=== PATIENT | female | born 1990 | race Caucasian/White ===

== ENCOUNTER 2018-04-07 07:44 | Day surgery (SDC) | payer BC ==
[2018-04-07] MEDS ORDERED: CEFOXITIN/SWI 1gm 1 GM/10 ML SYR ONE (08:08)
[2018-04-07] MEDS ORDERED: Ringers Lactate 1,000 ML IV ONE (08:08)
[2018-04-07 08:20] LABS: Specific Gravity 1.025 (1.005-1.030)
[2018-04-07] MEDS ORDERED: PROPOFOL 200 MG/20 ML VIAL IV ONE (08:41)
[2018-04-07] MEDS ORDERED: LIDOCAINE 2% MPF 5 ML VIAL ONE (08:42)
[2018-04-07] MEDS ORDERED: FENTANYL CITR 250 MCG/5 ML ONE (08:43)
[2018-04-07] MEDS ORDERED: ONDANSETRON HCL 40 MG/20 ML VIAL ONE (08:45)
[2018-04-07] MEDS ORDERED: ROCURONIUM 50 MG/5 ML VIAL IV ONE (08:45)
[2018-04-07] MEDS ORDERED: MIDAZOLAM HCL 2 MG/2 ML INJ ONE (08:46)
[2018-04-07] MEDS ORDERED: GLYCOPYRROLATE 0.2 MG/ML SYR ONE (09:40)
[2018-04-07] MEDS ORDERED: NEOSTIGMINE 1 MG/ML -5 ML SYRINGE ONE (09:55)
[2018-04-07] MEDS ORDERED: ONDANSETRON 4 MG/2 ML VIAL ONE (10:13)
[2018-04-07] MEDS: MEPERIDINE HCL 50 MG/ML AMP ONE ×2 (10:14→10:22)
[2018-04-07] MEDS ORDERED: PROMETHAZINE 25 MG/ML VIAL ONE (10:19)
[2018-04-07] MEDS ORDERED: HYDROCODONE/APAP 7.5/325 MG TAB ONE (12:04)
[2018-04-07] MEDS ORDERED: CODEINE 30MG/APAP 300MG TAB ONE (12:12)
[2018-04-07 13:34] VITALS: BP 134/80; TEMP 98.2; O2SAT 99
--- NOTE | 2018-04-07 14:52 | OP ---
Date of Procedure: 04/07/2018 Surgeon: Zhang Lora MD Ruling Machine Feeder: MARBELLA Downs. Preoperative Diagnosis: Symptomatic cholelithiasis. Postoperative Diagnosis: Symptomatic cholelithiasis. Procedure: Laparoscopic cholecystectomy. Estimated Blood Loss: Minimal. Specimen: Gallbladder. Finding: As above. Anesthesia: General. Complications: None. Disposition: The patient tolerated the procedure in stable condition and taken to Recovery in good g eneral condition. Procedure On Detail: The patient was brought to the OR and placed in supine position. General anest hesia was begun. The patient was prepped and draped in usual sterile fashion. Marcaine 0.5% was inf iltrated locally. A 15-blade used to make a 2 cm supraumbilical midline incision. Subcutaneous tiss ue divided. The fascia was identified and divided. A #1 Vicryl stay suture was placed. Peritoneal cavity was entered with sharp and blunt dissection. A 12 mm trocar was placed into the peritoneal un majo direct vision. Pneumoperitoneum was established and then three 5-mm trocars were placed, 1 in th e epigastrium just to the right of midline, and 2 in the right subcostal region. Laparoscopy reveale d chronic inflammation of the gallbladder. Fundus retracted superiorly. Infundibulum identified and retracted inferolaterally. Cystic duct and cystic artery were clearly identified with blunt dissect ion. Clips placed. Both structures were divided. Cautery was used to remove the gallbladder from t he liver bed. Bleeding in the liver bed was controlled with cautery. The gallbladder was retrieved through the umbilicus via an EndoCatch bag. Right upper quadrant was examined. No evidence of bleed ing or bile leakage appreciated. Subsequently, all trocars were removed under direct vision. Stay s utures were tied to each other across the fascial defect. Subcutaneous wounds were irrigated. Bleed ing controlled with cautery. A 3-0 chromic used for subcutaneous tissue and closed the skin. Steril e dressing was applied. The patient was awakened and taken to Recovery in good general condition. Discharge Note: The patient will go to Day Surgery and home when stable. Disposition: Home. Condition: Stable. Discharge Instructions: Resume home medications and diet. Activity as tolerated. No heavy lifting. Remove outer dressing in 2 days. Shower. Keep wound clean and dry. Follow up in my office in 1 w [place]. Call for appointment. Tylenol No.3 one tablet p.o. q.4 p.r.n. pain. Keep Steri-Strips on at a ll times. CHRIS/CANDY Voice ID: [id number] Report ID: [id number]
== END 2018-04-07 13:10 | disposition home or self-care (01) ==
LOC: OR 07:44
PROVIDERS: ATTEND Surgery
PROC: 0FT44ZZ Resection of Gallbladder, Percutaneous Endoscopic Approach (ICD-10-PCS; principal; 2018-04-07 09:00)
DX: K80.10 Calculus of gallbladder with chronic cholecystitis without obstruction (principal); E66.01 Morbid (severe) obesity due to excess calories; Z88.8 Allergy status to other drugs, medicaments and biological substances
CPT/HCPCS: 81025; 88304; J2175; J2250; J2405; J2550; J2710

== ENCOUNTER 2018-04-16 20:34 | Emergency (ER) | payer BC ==
[2018-04-16] MEDS ORDERED: NA CHLORIDE 0.9% 1,000 ML ONE (21:02)
[2018-04-16 21:37] LABS: Urine Blood 3+ (NEG); Urine Glucose NEGATIVE (NEG); Urine Specific Gravity 1.015 (1.005-1.030)
[2018-04-16 21:38] LABS: Urine Protein 1+ (NEG)
[2018-04-16 21:42] LABS: Absolute Lymphocytes (CBC) 1.8 K/uL (0.7-4.9); Absolute Monocytes 0.4 K/uL (0.1-1.3); Absolute Neutrophil 7.7 K/uL (1.8-8.0); Basophils % 0.5 % (0-1.3); Hematocrit 35.7 % (36.0-45.0); Lymphocytes % 18.1 % (15.3-44.8); MCH 22.8 pg (27.0-35.0); MCV 71.3 fL (80-100); RBC Red Blood Cell Count 5.01 M/uL (3.86-4.86)
[2018-04-16 21:46] LABS: Urine Bacteria <20 /HPF (<20); Urine Culture Reflex Order NOT NEEDED; Urine Mucus MOD /HPF (NONE SEEN); Urine RBC TNTC /HPF (NONE SEEN)
[2018-04-16 21:50] LABS: ALT/SGPT 77 U/L (12-78); AST/SGOT 86 U/L (15-37); Albumin 3.8 g/dL (3.4-5.0); Alkaline Phosphatase 206 U/L (45-117); Amylase Level 23 U/L (25-115); BUN Blood Urea Nitrogen 4 mg/dL (7-18); Bicarbonate 26 mmol/L (21-32); Bilirubin Direct < 0.1 mg/dL (0-0.2); Bilirubin Total 0.4 mg/dL (0.2-1.0); Glucose Level 98 mg/dL (74-106); Lipase 66 U/L (73-393); Potassium 3.2 mmol/L (3.5-5.1); Sodium Level 141 mmol/L (136-145)
--- NOTE | 2018-04-16 21:50 | RAD REPORT ---
EXAM DESCRIPTION: CT - Abdomen Pelvis W Contrast - 04/16/2018 9:22 pm CLINICAL HISTORY: Abdominal pain/epigastric pain. Cholecystectomy 1 week ago COMPARISON: none. TECHNIQUE: Computed axial tomography of the abdomen pelvis was obtained. 100 cc Isovue-300 was admin istered intravenously. Oral contrast was not requested which limits evaluation of bowel. All CT scans are performed using dose optimization technique as appropriate and may include automated exposure control or mA/KV adjustment according to patient size. FINDINGS: The gallbladder has been removed. A fluid collection within the gallbladder fossa is not s een. Ascites is not noted. The liver, spleen, pancreas, adrenal and kidneys appear unremarkable. There is no evidence of diverticulitis. The appendix is normal A small umbilical hernia is present. Stranding is seen within the subcutaneous fat IMPRESSION: Cholecystectomy without fluid collection Small umbilical hernia. Stranding within the anterior subcutaneous fat may indicate inflammation.
--- NOTE | 2018-04-16 22:07 | ER ---
Nurse's Notes [facility] Name: Alanna Pathak Age: 27 yrs Sex: Female : 1990 Arrival Date: 04/16/2018 Time: 20:35 Bed 7 Private MD: Diagnosis: Epigastric pain Presentation: 04/16 20:44 Presenting complaint: Patient states: she had gallbladder sx approx 1 week ago and has aa1 been having int pain in her chest that radiates to her back but this evening the pain came back only this time it was much more intense. Denies any pain at this time but report pain at it's worst was 9/10. States pain began between her breast and went through to her back. Transition of care: patient was not received from another setting of care. Onset of symptoms was April 16, 2018 at 18:00. Risk Assessment: Do you want to hurt yourself or someone else? Patient reports no desire to harm self or others. Initial Sepsis Screen: Does the patient meet any 2 criteria? No. Patient's initial sepsis screen is negative. Does the patient have a suspected source of infection? No. Patient's initial sepsis screen is negative. Care prior to arrival: None. 20:44 Method Of Arrival: Ambulatory aa1 20:44 Acuity: CHIKIS 3 aa1 Triage Assessment: 20:47 General: Appears in no apparent distress. comfortable, Behavior is calm, cooperative, aa1 appropriate for age. Historical: - Allergies: 20:47 Equate cough syrup; aa1 20:47 Tamiflu; aa1 20:47 Prilosec; aa1 - Home Meds: 20:47 None [Active]; aa1 - PMHx: 20:47 None; aa1 - PSHx: 20:47 Cholecystectomy; ; aa1 - Immunization history:: Flu vaccine is not up to date. - Social history:: Smoking status: Patient/guardian denies using tobacco. - Ebola Screening: : No symptoms or risks identified at this time. Screenin:49 Abuse screen: Denies threats or abuse. Denies injuries from another. Nutritional aa1 screening: No deficits noted. Tuberculosis screening: No symptoms or risk factors identified. Fall Risk None identified. Assessment: 20:49 General: Appears in no apparent distress. comfortable, Behavior is calm, cooperative, aa1 appropriate for age. Pain: Complains of pain in xyphoid area and mid-sternal area Pain radiates to mid back area Pain currently is 0 out of 10 on a pain scale. at worst was 9 out of 10 on a pain scale. Quality of pain is described as sharp, Pain began 3 hours ago. Is intermittent. Neuro: Level of Consciousness is awake, alert, obeys commands, Oriented to person, place, time, situation, Moves all extremities. Full function Gait is steady, Speech is normal. Cardiovascular: Reports chest pain, Heart tones S1 S2 present Capillary refill < 3 seconds Clubbing of nail beds is absent JVD is absent Patient's skin is warm and dry. Rhythm is regular Chest pain is described as severe, quality is stabbing, is located in substernal area radiates back began 3 hours prior to arrival episodes are intermittent last 2-3 minutes. Respiratory: Airway is patent Respiratory effort is even, unlabored, Respiratory pattern is regular, symmetrical. GI: No signs and/or symptoms were reported involving the gastrointestinal system. : No signs and/or symptoms were reported regarding the genitourinary system. EENT: No signs and/or symptoms were reported regarding the EENT system. Derm: Skin is intact, is healthy with good turgor, Skin is pink, warm \T\ dry. Musculoskeletal: Circulation, motion, and sensation intact. Capillary refill < 3 seconds. 21:34 Reassessment: Patient appears in no apparent distress at this time. Patient and/or aa1 family updated on plan of care and expected duration. Pain level reassessed. Patient is alert, oriented x 3, equal unlabored respirations, skin warm/dry/pink. Awaiting lab results. 22:17 Reassessment: Patient appears in no apparent distress at this time. Patient is alert, aa1 oriented x 3, equal unlabored respirations, skin warm/dry/pink. Discussed d/c \T\ f/u instructions with pt \T\ spouse; denies questions or concerns at this time Patient denies pain at this time. Patient states feeling better. Vital Signs: 20:47 BP 166 / 97; Pulse 100; Resp 20; Temp 98.1; Pulse Ox 100% on R/A; Weight 127.01 kg; aa1 Height 5 ft. 8 in. (172.72 cm); Pain 0/10; 21:34 BP 121 / 66; Pulse 94; Resp 20; Pulse Ox 99% on R/A; Pain 0/10; aa1 22:17 BP 115 / 66; Pulse 84; Resp 16; Pulse Ox 100% on R/A; Pain 0/10; aa1 20:47 Body Mass Index 42.57 (127.01 kg, 172.72 cm) aa1 ED Course: 20:35 Patient arrived in ED. am2 20:36 Kareem Mccauley NP is PHCP. pm1 20:36 Ron Johnson MD is Attending Physician. pm1 20:37 PHCP role handed off by Kareem Mccauley NP cp 20:37 Idris Blue PA is PHCP. cp 20:40 Aj Brody RN is Primary Nurse. bp 20:46 Triage completed. aa1 20:47 Arm band placed on right wrist. aa1 20:49 Patient has correct armband on for positive identification. Placed in gown. Bed in low aa1 position. Call light in reach. laboratory monitor on. Pulse ox on. NIBP on. 20:49 EKG done, by ED staff, reviewed by Ron Johnson MD. aa1 21:00 Inserted saline lock: 20 gauge in right antecubital area, using aseptic technique. bp Blood collected. 21:22 CT Abd/Pelvis - W/Contrast: no oral contrast In Process Unspecified. EDMS 21:22 CT completed. Patient moved to CT via stretcher. Patient moved back from CT. cw1 22:17 No provider procedures requiring assistance completed. IV discontinued, intact, aa1 bleeding controlled, No redness/swelling at site. Pressure dressing applied. Administered Medications: 21:00 Drug: NS 0.9% 1000 ml Route: IV; Rate: 1 bolus; Site: right antecubital; bp 22:16 Follow up: IV Status: Completed infusion aa1 Outcome: 22:06 Discharge ordered by MD. cp 22:17 Discharged to home ambulatory, with significant other. aa1 22:17 Condition: good 22:17 Discharge instructions given to patient, significant other, Instructed on discharge instructions, follow up and referral plans. medication usage, Demonstrated understanding of instructions, follow-up care, medications, Prescriptions given X 2. 22:20 Patient left the ED. aa1 Signatures: Dispatcher [employer] EDMS Preeti Tatum RN RN aa1 Jeanine Yo cw1 Idris Blue PA PA cp Kareem Mccauley, BUTT MAKER BUTT MAKER pm1 Mercedez Aaron am2 Aj Brody, RN RN bp
--- NOTE | 2018-04-16 22:08 | EDPHYS ---
Physician Documentation [facility] Name: Alanna Pathak Age: 27 yrs Sex: Female : 1990 Arrival Date: 04/16/2018 Time: 20:35 Bed 7 Private MD: ED Physician Ron Johnson HPI: 04/16 20:48 This 27 yrs old Female presents to ER via Ambulatory with complaints of Back cp Pain, Side pain. 20:48 The patient presents with pain that is acute. The symptoms are located in the mid back cp area. Onset: The symptoms/episode began/occurred intermittent. Associated signs and symptoms: Pertinent positives: abdominal pain, nausea. Historical: - Allergies: 20:47 Equate cough syrup; aa1 20:47 Tamiflu; aa1 20:47 Prilosec; aa1 - Home Meds: 20:47 None [Active]; aa1 - PMHx: 20:47 None; aa1 - PSHx: 20:47 Cholecystectomy; ; aa1 - Immunization history:: Flu vaccine is not up to date. - Social history:: Smoking status: Patient/guardian denies using tobacco. - Ebola Screening: : No symptoms or risks identified at this time. ROS: 20:49 Eyes: Negative for injury, pain, redness, and discharge. cp 20:49 Constitutional: Negative for body aches, chills, fever, poor PO intake. 20:49 ENT: Negative for drainage from ear(s), ear pain, sore throat, difficulty swallowing, difficulty handling secretions. 20:49 Cardiovascular: Negative for chest pain, edema, palpitations. 20:49 Respiratory: Negative for cough, shortness of breath, wheezing. 20:49 Abdomen/GI: Positive for abdominal pain, nausea, Negative for vomiting, diarrhea, constipation, black/tarry stool, rectal bleeding. 20:49 Back: Positive for radiated pain, of the mid back area, Negative for injury or acute deformity. 20:49 Skin: Negative for cellulitis, rash. 20:49 Neuro: Negative for altered mental status, headache, weakness. 20:49 All other systems are negative. Exam: 20:54 ECG was reviewed by the Attending Physician. cp 20:55 Constitutional: The patient appears in no acute distress, alert, awake, non-toxic, well cp developed, well nourished, obese. 20:55 Head/Face: Normocephalic, atraumatic. cp 20:55 Eyes: Periorbital structures: appear normal, Conjunctiva: normal, no exudate, no injection, Sclera: no appreciated abnormality, Lids and lashes: appear normal, bilaterally. 20:55 ENT: External ear(s): are unremarkable, Nose: is normal, Mouth: is normal, Posterior pharynx: is normal, airway is patent. 20:55 Chest/axilla: Inspection: normal, Palpation: is normal, no crepitus, no tenderness. 20:55 Cardiovascular: Rate: tachycardic, Rhythm: regular. 20:55 Respiratory: the patient does not display signs of respiratory distress, Respirations: normal, no use of accessory muscles, no retractions, no splinting, no tachypnea, labored breathing, is not present, Breath sounds: are clear throughout, no decreased breath sounds, no stridor, no wheezing. 20:55 Abdomen/GI: Inspection: obese surgical scars appear to be healing well, Bowel sounds: active, all quadrants, Palpation: soft, in all quadrants, mild abdominal tenderness, in the epigastric area, voluntary guarding, is not appreciated, involuntary guarding, is not appreciated. 20:55 Back: CVA tenderness, is absent. 20:55 Skin: cellulitis, is not appreciated, no rash present. 20:55 Neuro: Orientation: to person, place \T\ time. Mentation: lucid, able to follow commands, Cerebellar function: is grossly normal, Motor: moves all fours, strength is normal, Sensation: no obvious gross deficits. Vital Signs: 20:47 BP 166 / 97; Pulse 100; Resp 20; Temp 98.1; Pulse Ox 100% on R/A; Weight 127.01 kg; aa1 Height 5 ft. 8 in. (172.72 cm); Pain 0/10; 21:34 BP 121 / 66; Pulse 94; Resp 20; Pulse Ox 99% on R/A; Pain 0/10; aa1 22:17 BP 115 / 66; Pulse 84; Resp 16; Pulse Ox 100% on R/A; Pain 0/10; aa1 20:47 Body Mass Index 42.57 (127.01 kg, 172.72 cm) aa1 MDM: 20:37 Patient medically screened. cp 21:00 Differential diagnosis: gerd, choledocholithiasis, pancreatitis, uti. 21:55 Data reviewed: vital signs, nurses notes, lab test result(s), EKG, radiologic studies, cp CT scan, and as a result, I will discharge patient. 21:55 Counseling: I had a detailed discussion with the patient and/or guardian regarding: the cp historical points, exam findings, and any diagnostic results supporting the discharge/admit diagnosis, lab results, radiology results, to return to the emergency department if symptoms worsen or persist or if there are any questions or concerns that arise at home. 21:55 Special discussion: Based on the patient's Hx, exam, and Dx evaluation, there is no cp indication for emergent surgery or inpatient Tx. It is understood by the patient/guardian that if the Sx's persist or worsen they need to return immediately for re-evaluation. 04/16 20:48 Order name: Amylase, Serum; Complete Time: 21:51 04/16 21:51 Interpretation: HEIDY 23; Reviewed. 04/16 20:48 Order name: Basic Metabolic Panel; Complete Time: 21:51 04/16 21:51 Interpretation: Normal except: K 3.2; BUN 4; GFR 75. 04/16 20:48 Order name: CBC with Diff; Complete Time: 21:51 04/16 21:52 Interpretation: Normal except: RBC 5.01; HGB 11.4; HCT 35.7; MCV 71.3; MCH 22.8; RDW cp 17.7; WILLARD% 76.4. 04/16 20:48 Order name: Hepatic Function; Complete Time: 21:51 04/16 21:52 Interpretation: Normal except: AST 86; ALK 206; GLOB 4.2; A/G 0.9. 04/16 20:48 Order name: Lipase; Complete Time: 21:51 04/16 21:52 Interpretation: LIP 66; Reviewed. 04/16 20:48 Order name: Urine Microscopic Only; Complete Time: 21:51 04/16 21:52 Interpretation: Normal except: URBC TNTC. 04/16 20:48 Order name: EKG; Complete Time: 20:48 04/16 20:53 Order name: Troponin I; Complete Time: 21:51 04/16 21:53 Interpretation: TROP < 0.02; Reviewed. 04/16 20:59 Order name: CT Abd/Pelvis - W/Contrast: no oral contrast; Complete Time: 21:51 04/16 21:53 Interpretation: Report reviewed. 04/16 21:07 Order name: Urine Dipstick--Ancillary (enter results); Complete Time: 21:51 ms 04/16 21:52 Interpretation: Normal except: UBLD 3+; UPROT 1+; UESTR TRACE. 04/16 21:07 Order name: Urine --Ancillary (enter results); Complete Time: 21:51 ms 04/16 20:48 Order name: IV Saline Lock; Complete Time: 21:05 04/16 20:48 Order name: Labs collected and sent; Complete Time: 21:05 04/16 20:48 Order name: Urine Dipstick-Ancillary (obtain specimen); Complete Time: 20:58 04/16 20:48 Order name: EKG - Nurse/Tech; Complete Time: 20:53 04/16 20:53 Order name: Urine Test (obtain specimen); Complete Time: 20:57 aa1 EC:54 Rate is 98 beats/min. Rhythm is regular. HI interval is normal. QRS interval is normal. cp QT interval is normal. No ST changes noted. Interpreted by me. Reviewed by me. Administered Medications: 21:00 Drug: NS 0.9% 1000 ml Route: IV; Rate: 1 bolus; Site: right antecubital; bp 22:16 Follow up: IV Status: Completed infusion aa1 Disposition: 04/17 01:58 Co-signature as Attending Physician, Ron Johnson MD I agree with the assessment and kdr plan of care. Disposition: 04/16/18 22:06 Discharged to Home. Impression: Epigastric pain. - Condition is Stable. - Discharge Instructions: Gastroesophageal Reflux Disease, Adult. - Prescriptions for Pepcid 20 mg Oral Tablet - take 1 tablet by ORAL route every 12 hours for 10 days; 20 tablet. Zofran 4 mg Oral Tablet - take 1 tablet by ORAL route every 12 hours As needed; 20 tablet. - Medication Reconciliation Form, Thank You Letter, Antibiotic Education, Prescription Opioid Use form. - Follow up: Private Physician; When: 2 - 3 days; Reason: Recheck today's complaints. - Problem is new. - Symptoms have improved. Signatures: Dispatcher [employer] EDRI Preeti Tatum RN RN aa1 Ron Johnson MD MD kdr Idris Blue, LIONEL PA cp Aj Brody, RN RN bp Corrections: (The following items were deleted from the chart) 04/16 20:53 20:48 Urine Test ordered. cp aa1 21:28 20:48 Creatinine for Radiology+C.LAB.BRZ ordered. [facility] 22:20 22:06 04/16/2018 22:06 Discharged to Home. Impression: Epigastric pain. Condition is aa1 Stable. Forms are Medication Reconciliation Form, Thank You Letter, Antibiotic Education, Prescription Opioid Use. Follow up: Private Physician; When: 2 - 3 days; Reason: Recheck today's complaints. Problem is new. Symptoms have improved. cp
[2018-04-16 22:24] VITALS: TEMP 98.1
[2018-04-16 22:26] VITALS: BP 115/66; O2SAT 100
--- NOTE | 2018-04-17 06:48 | EKG ---
Test Date: 2018-04-16 Test Time: 20:51:03 Tax Accountant: MIKEL MEASUREMENT RESULTS: Intervals: Rate: 98 IL: 138 QRSD: 82 QT: 342 QTc: 436 [place]: P: 47 IL: 138 QRS: 13 T: 60 INTERPRETIVE STATEMENTS: Normal sinus rhythm Normal ECG No previous ECG available for comparison Electronically Signed On 04-17-18 06:47:57 CDT by King Gao
== END 2018-04-16 22:20 | disposition home or self-care (01) ==
LOC: ER 20:34
DX: R10.13 Epigastric pain (principal); Z88.8 Allergy status to other drugs, medicaments and biological substances
CPT/HCPCS: 36415; 74177; 80048; 80076; 81003; 81015; 81025; 82150; 83690; 84484; 85025; 93005; 96360; 99285; J7030; Q9967

== ENCOUNTER 2018-05-11 20:04 | Emergency (ER) | payer BC ==
[2018-05-11] MEDS ORDERED: KETOROLAC 30 MG/ML INJ ONE (21:17)
--- NOTE | 2018-05-11 21:24 | RAD REPORT ---
EXAM DESCRIPTION: Janes Nascimento (2 Views)05/11/2018 9:14 pm CLINICAL HISTORY: Chest pain COMPARISON: None FINDINGS: The lungs appear clear of acute infiltrate. The heart is normal size IMPRESSION: No acute abnormalities displayed
[2018-05-11 21:25] LABS: Absolute Lymphocytes (CBC) 1.1 K/uL (0.7-4.9); Absolute Monocytes 0.3 K/uL (0.1-1.3); Absolute Neutrophil 4.9 K/uL (1.8-8.0); Basophils % 0.4 % (0-1.3); Eosinophils % 0.5 % (0-4.4); Hematocrit 34.3 % (36.0-45.0); Lymphocytes % 17.3 % (15.3-44.8); MCH 23.2 pg (27.0-35.0); MCV 71.4 fL (80-100); Monocytes % 4.9 % (3.3-12.3); RBC Red Blood Cell Count 4.81 M/uL (3.86-4.86)
[2018-05-11 21:44] LABS: Albumin 3.7 g/dL (3.4-5.0); Bilirubin Direct 0.1 mg/dL (0-0.2); Bilirubin Total 0.3 mg/dL (0.2-1.0); Potassium 3.3 mmol/L (3.5-5.1); Protein, Total 7.6 g/dL (6.4-8.2)
[2018-05-11 22:12] LABS: Urine Blood 3+ (NEG); Urine Glucose NEGATIVE (NEG); Urine Protein NEGATIVE (NEG); Urine Specific Gravity 1.015 (1.005-1.030)
[2018-05-11] MEDS ORDERED: POTASSIUM CL SA 10 MEQ TAB PO ONE (22:29)
[2018-05-11] MEDS ORDERED: NA CHLORIDE 0.9% 1,000 ML ONE (22:39)
--- NOTE | 2018-05-11 22:39 | RAD REPORT ---
EXAM DESCRIPTION: CT - Abdomen Pelvis W Contrast - 05/11/2018 10:03 pm CLINICAL HISTORY: Abdominal pain/cholecystectomy 1 month ago COMPARISON: April 2018 TECHNIQUE: Computed axial tomography of the abdomen pelvis was obtained. 100 cc Isovue-300 was admin istered intravenously. Oral contrast was not requested which limits evaluation of bowel. All CT scans are performed using dose optimization technique as appropriate and may include automated exposure control or mA/KV adjustment according to patient size. FINDINGS: The gallbladder has been removed. A fluid collection is not present within the gallbladder fossa. The liver, spleen, pancreas, adrenal and kidneys appear unremarkable. There is no evidence of diverticulitis. The appendix is normal. A small umbilical hernia contains fat IMPRESSION: No acute abnormality is displayed.
--- NOTE | 2018-05-11 22:44 | ER ---
Nurse's Notes [facility] Name: Alanna Pathak Age: 27 yrs Sex: Female : 1990 Arrival Date: 05/11/2018 Time: 20:12 Bed 14 Private MD: Diagnosis: Epigastric pain. S/P Cholecystectomy. Elevared liver functions Presentation: 05/11 20:17 Presenting complaint: Patient states: "I had my gallbladder taken out a month ago, my bs1 stomach has been hurting since Tuesday and I feel bloated, it hurts after I eat and I feel a fluid pocket in my epigastric area.". Transition of care: patient was not received from another setting of care. Onset of symptoms was May 07, 2018. Risk Assessment: Do you want to hurt yourself or someone else? Patient reports no desire to harm self or others. Initial Sepsis Screen: Does the patient meet any 2 criteria? HR > 90 bpm. No. Patient's initial sepsis screen is negative. Does the patient have a suspected source of infection? No. Patient's initial sepsis screen is negative. Care prior to arrival: None. 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 - Social history:: Smoking status: Patient/guardian denies using tobacco. - Ebola Screening: : Patient negative for fever greater than or equal to 101.5 degrees Fahrenheit, and additional compatible Ebola Virus Disease symptoms Patient denies exposure to infectious person. Screenin:40 Abuse screen: Denies threats or abuse. Denies injuries from another. Nutritional bs1 screening: No deficits noted. Tuberculosis screening: No symptoms or risk factors identified. Fall Risk None identified. Assessment: 20:18 General: Appears in no apparent distress. uncomfortable, obese, Behavior is calm, bs1 cooperative, appropriate for age. Pain: Complains of pain in epigastric area. Pain: Pain radiates to right breast/back. Neuro: Level of Consciousness is awake, alert, obeys commands, Oriented to person, place, time, situation, Appropriate for age. Cardiovascular: Denies chest pain, shortness of breath, Heart tones S1 S2 present Capillary refill < 3 seconds Patient's skin is warm and dry. Respiratory: Airway is patent Trachea midline Respiratory effort is even, unlabored, Respiratory pattern is regular, symmetrical, Breath sounds are clear bilaterally. GI: Abdomen is round non-distended, Bowel sounds present X 4 quads. Abd is soft X 4 quads Abdomen is tender to palpation in epigastric area Reports bloating, epigastric pain. : No signs and/or symptoms were reported regarding the genitourinary system. EENT: No signs and/or symptoms were reported regarding the EENT system. Derm: Skin is intact, Skin is pink, warm \\T\\ dry. normal. Musculoskeletal: Circulation, motion, and sensation intact. Capillary refill < 3 seconds, Range of motion: intact in all extremities. 21:45 Reassessment: Patient appears in no apparent distress at this time. Patient and/or bs1 family updated on plan of care and expected duration. Pain level reassessed. Patient is alert, oriented x 3, equal unlabored respirations, skin warm/dry/pink. Patient informed of POC/pending lab work. 23:10 Reassessment: Patient appears in no apparent distress at this time. Patient and/or bs1 family updated on plan of care and expected duration. Pain level reassessed. Patient is alert, oriented x 3, equal unlabored respirations, skin warm/dry/pink. Patient finished 500 cc bolus. To be discharged and to follow up with Dr Lora in 2-3 days. Patient denies pain at this time. Patient states feeling better. Patient states symptoms have improved. Vital Signs: 20:20 BP 146 / 95; Pulse 120; Resp 18 S; Temp 98.7(O); Pulse Ox 100% on R/A; Weight 125.19 bs1 kg; Height 5 ft. 8 in. (172.72 cm); Pain 8/10; 21:00 BP 118 / 59; Pulse 93; Resp 16 S; Pulse Ox 100% on R/A; bs1 21:30 BP 119 / 66; Pulse 78; Resp 16 S; Pulse Ox 100% on R/A; bs1 22:15 BP 115 / 65; Pulse 69; Resp 16 S; Pulse Ox 100% on R/A; bs1 23:15 BP 118 / 68; Pulse 84; Resp 16; Temp 98; Pulse Ox 100% on R/A; Pain 0/10; bs1 20:20 Body Mass Index 41.97 (125.19 kg, 172.72 cm) bs1 ED Course: 20:12 Patient arrived in ED. es 20:17 Raine Field, LAITH is Primary Nurse. bs1 20:22 Aureliano Kearney PA is PHCP. jr8 20:22 Bon Montanez MD is Attending Physician. jr8 20:30 Arm band placed on left wrist. bs1 20:30 Inserted saline lock: 20 gauge in right antecubital area, using aseptic technique. bs1 Blood collected. by me. flushed with 10cc Ns. 20:38 Triage completed. bs1 20:41 Patient has correct armband on for positive identification. Placed in gown. Bed in low bs1 position. Call light in reach. Side rails up X 1. Pulse ox on. NIBP on. Warm blanket given. 21:12 XRAY Chest Pa And Lat (2 Views) In Process Unspecified. EDMS 21:[address] vr 22:02 CT completed. Patient tolerated procedure well. Patient moved back from CT. nj 22:03 CT Abd/Pelvis - W/Contrast In Process Unspecified. EDMS 22:42 Zhang Lora MD is Referral Physician. pkl 23:15 IV discontinued, bleeding controlled, No redness/swelling at site. Pressure dressing bs1 applied. 23:29 No provider procedures requiring assistance completed. bs1 Administered Medications: 21:32 Drug: TORadol 30 mg Route: IVP; Site: right antecubital; bs1 23:32 Follow up: Response: No adverse reaction bs1 22:29 Drug: K-Dur 20 mEq Route: PO; bs1 23:32 Follow up: Response: No adverse reaction bs1 22:38 Drug: NS 0.9% 500 ml {Note: nurse pulled 1L NS, patient to only receive 500cc, due to bs1 not having 500cc ns bags.} Route: IV; Rate: bolus; Site: right antecubital; 23:32 Follow up: IV Status: Completed infusion bs1 Outcome: 22:44 Discharge ordered by . pkl 23:30 Discharged to home ambulatory, with significant other. bs1 23:30 Condition: stable 23:30 Discharge instructions given to patient, Instructed on discharge instructions, follow up and referral plans. medication usage, Demonstrated understanding of instructions, follow-up care, medications, Prescriptions given X 2. 23:32 Patient left the ED. bs1 Signatures: Dispatcher [employer] Bon Nice MD MD pkl Salyer, Raina Dior Josh, PA PA jr8 Kenney Jeffrey Brittany RN RN bs1 Corrections: (The following items were deleted from the chart) 23:32 23:00 Reassessment: Patient appears in no apparent distress at this time. Patient bs1 and/or family updated on plan of care and expected duration. Pain level reassessed. Patient is alert, oriented x 3, equal unlabored respirations, skin warm/dry/pink. Patient finsih Patient denies pain at this time. Patient states feeling better. Patient states symptoms have improved. bs1
--- NOTE | 2018-05-11 22:44 | EDPHYS ---
Physician Documentation [facility] Name: Alanna Pathak Age: 27 yrs Sex: Female : 1990 Arrival Date: 05/11/2018 Time: 20:12 Bed 14 Private MD: ED Physician Bon Montanez HPI: 05/11 20:42 This 27 yrs old Female presents to ER via Ambulatory with complaints of jr8 Abdominal Pain. 20:42 Onset: The symptoms/episode began/occurred acutely, yesterday. Severity of symptoms: At jr8 their worst the symptoms were moderate in the emergency department the symptoms are unchanged. The patient has not experienced similar symptoms in the past. The patient has not recently seen a physician. Patient stated that she had gallbladder taken out about one month ago. Stated hat one week after surgery had some pain and bloating. Work up including blood work and CT were completed with no acute findings. Stated that they looked at her heart as well with no findings. Since then has been doing well. Today is having sharp pain to upper abdomen/chest region. Stated that pain is different then last time. Nauseated with it . 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 - Social history:: Smoking status: Patient/guardian denies using tobacco. - Ebola Screening: : Patient negative for fever greater than or equal to 101.5 degrees Fahrenheit, and additional compatible Ebola Virus Disease symptoms Patient denies exposure to infectious person. ROS: 20:42 Eyes: Negative for injury, pain, redness, and discharge, ENT: Negative for injury, jr8 pain, and discharge, Neck: Negative for injury, pain, and swelling, Cardiovascular: Negative for chest pain, palpitations, and edema, Respiratory: Negative for shortness of breath, cough, wheezing, and pleuritic chest pain, Back: Negative for injury and pain, MS/Extremity: Negative for injury and deformity, Skin: Negative for injury, rash, and discoloration, Neuro: Negative for headache, weakness, numbness, tingling, and seizure. 20:42 Abdomen/GI: Positive for abdominal pain, nausea, Negative for diarrhea, constipation, abdominal cramps, abdominal distension, anorexia, dysphagia, hematemesis, black/tarry stool, rectal pain, rectal bleeding, bowel incontinence, flatulence. Exam: 20:42 Head/Face: Normocephalic, atraumatic. Eyes: Pupils equal round and reactive to light, jr8 extra-ocular motions intact. Lids and lashes normal. Conjunctiva and sclera are non-icteric and not injected. Cornea within normal limits. Periorbital areas with no swelling, redness, or edema. ENT: Nares patent. No nasal discharge, no septal abnormalities noted. Tympanic membranes are normal and external auditory canals are clear. Oropharynx with no redness, swelling, or masses, exudates, or evidence of obstruction, uvula midline. Mucous membranes moist. Neck: Trachea midline, no thyromegaly or masses palpated, and no cervical lymphadenopathy. Supple, full range of motion without nuchal rigidity, or vertebral point tenderness. No Meningismus. Cardiovascular: Regular rate and rhythm with a normal S1 and S2. No gallops, murmurs, or rubs. Normal PMI, no JVD. No pulse deficits. Respiratory: Lungs have equal breath sounds bilaterally, clear to auscultation and percussion. No rales, rhonchi or wheezes noted. No increased work of breathing, no retractions or nasal flaring. Abdomen/GI: Soft, non-tender, with normal bowel sounds. No distension or tympany. No guarding or rebound. No evidence of tenderness throughout. Back: No spinal tenderness. No costovertebral tenderness. Full range of motion. Skin: Warm, dry with normal turgor. Normal color with no rashes, no lesions, and no evidence of cellulitis. MS/ Extremity: Pulses equal, no cyanosis. Neurovascular intact. Full, normal range of motion. Neuro: Awake and alert, GCS 15, oriented to person, place, time, and situation. Cranial nerves II-XII grossly intact. Motor strength 5/5 in all extremities. Sensory grossly intact. Cerebellar exam normal. Normal gait. 20:42 Chest/axilla: Inspection: normal, Palpation: tenderness, that is moderate, of the xyphoid area, left lower sternal boarder and left lower rib under breast , that totally reproduces the patient's complaints. Vital Signs: 20:20 BP 146 / 95; Pulse 120; Resp 18 S; Temp 98.7(O); Pulse Ox 100% on R/A; Weight 125.19 bs1 kg; Height 5 ft. 8 in. (172.72 cm); Pain 8/10; 21:00 BP 118 / 59; Pulse 93; Resp 16 S; Pulse Ox 100% on R/A; bs1 21:30 BP 119 / 66; Pulse 78; Resp 16 S; Pulse Ox 100% on R/A; bs1 22:15 BP 115 / 65; Pulse 69; Resp 16 S; Pulse Ox 100% on R/A; bs1 23:15 BP 118 / 68; Pulse 84; Resp 16; Temp 98; Pulse Ox 100% on R/A; Pain 0/10; bs1 20:20 Body Mass Index 41.97 (125.19 kg, 172.72 cm) bs1 MDM: 20:22 Patient medically screened. 8 21:58 Data reviewed: vital signs, nurses notes, lab test result(s), radiologic studies, CT jr8 scan. Data interpreted: Pulse oximetry: on room air is 100 %. Transition of care: After a detail discussion of the patient's case, care is transferred to Bon Montanez MD. 05/11 20:33 Order name: Basic Metabolic Panel; Complete Time: 21:44 [facility] 05/11 20:33 Order name: CBC with Diff; Complete Time: 21:44 [facility] 05/11 20:33 Order name: Creatinine for Radiology; Complete Time: 21:44 [facility] 05/11 20:33 Order name: Hepatic Function; Complete Time: 21:44 [facility] 05/11 20:33 Order name: Lipase; Complete Time: 21:44 [facility] 05/11 20:33 Order name: ESR; Complete Time: 21:44 [facility] 05/11 20:33 Order name: Urine Test (obtain specimen); Complete Time: 21:09 8 05/11 20:33 Order name: XRAY Chest Pa And Lat (2 Views); Complete Time: 21:26 8 05/11 21:15 Order name: Urine Dipstick--Ancillary (enter results); Complete Time: 22:13 nv 05/11 21:15 Order name: Urine --Ancillary (enter results); Complete Time: 22:13 nv 05/11 21:46 Order name: CT Abd/Pelvis - W/Contrast; Complete Time: 22:50 [facility] 05/11 20:33 Order name: IV Saline Lock; Complete Time: 21:05/11 20:33 Order name: Labs collected and sent; Complete Time: 21: 05/11 20:33 Order name: Urine Dipstick-Ancillary (obtain specimen); Complete Time: 21: 05/11 20:33 Order name: EKG - Nurse/Tech; Complete Time: 21:26 jr Administered Medications: 21:32 Drug: TORadol 30 mg Route: IVP; Site: right antecubital; bs1 23:32 Follow up: Response: No adverse reaction bs1 22:29 Drug: K-Dur 20 mEq Route: PO; bs1 23:32 Follow up: Response: No adverse reaction bs1 22:38 Drug: NS 0.9% 500 ml {Note: nurse pulled 1L NS, patient to only receive 500cc, due to bs1 not having 500cc ns bags.} Route: IV; Rate: bolus; Site: right antecubital; 23:32 Follow up: IV Status: Completed infusion bs1 Disposition: 22:16 Co-signature as Attending Physician, Bon Montanez MD. pkl Disposition: 05/11/18 22:44 Discharged to Home. Impression: Epigastric pain. S/P Cholecystectomy. Elevared liver functions. - Condition is Stable. - Prescriptions for Ultram 50 mg Oral Tablet - take 1 tablet by ORAL route every 8 hours As needed; 20 tablet. Zantac 300 mg Oral Tablet - take 1 tablet by ORAL route At bedtime; 30 tablet. - Medication Reconciliation Form, Thank You Letter, Antibiotic Education, Prescription Opioid Use form. - Follow up: Zhang Lora MD; When: 2 - 3 days; Reason: Re-evaluation by your physician. - Problem is new. - Symptoms have improved. Signatures: Dispatcher [employer] EDMS Bon Montanez MD MD pkl Aureliano Kearney PA PA jr8 Raine Field RN RN bs1 Corrections: (The following items were deleted from the chart) 23:32 22:44 05/11/2018 22:44 Discharged to Home. Impression: Epigastric pain. S/P bs1 Cholecystectomy. Elevared liver functions. Condition is Stable. Forms are Medication Reconciliation Form, Thank You Letter, Antibiotic Education, Prescription Opioid Use. Follow up: Dr. Zhang Lora; When: 2 - 3 days; Reason: Re-evaluation by your physician. Problem is new. Symptoms have improved. pkl
[2018-05-11 23:39] VITALS: TEMP 98.7; O2SAT 100
[2018-05-11 23:42] VITALS: BP 115/65
--- NOTE | 2018-05-12 08:19 | EKG ---
Test Date: 2018-05-11 Test Time: 21:19:18 Double End [place] Operator: THIEN MEASUREMENT RESULTS: Intervals: Rate: 93 CT: 142 QRSD: 80 QT: 358 QTc: 445 Dahlgren: P: 44 CT: 142 QRS: 13 T: 53 INTERPRETIVE STATEMENTS: Normal sinus rhythm Normal ECG Compared to ECG 04/16/2018 20:51:03 No significant changes Electronically Signed On 05-12-18 08:18:46 CDT by King Gao
== END 2018-05-11 23:32 | disposition home or self-care (01) ==
LOC: ER 20:04
DX: R10.13 Epigastric pain (principal); Z88.8 Allergy status to other drugs, medicaments and biological substances; R94.5 Abnormal results of liver function studies
CPT/HCPCS: 36415; 71046; 74177; 80048; 80076; 81003; 81025; 83690; 85025; 85652; 93005; 96361; 96374; 99284; J7030; Q9967

== ENCOUNTER 2018-05-24 10:29 | Day surgery (SDC) | payer BC ==
[2018-05-24] MEDS ORDERED: GENTAMICIN SULF 80 MG/2ML INJ ONE (10:49)
[2018-05-24 11:01] LABS: Specific Gravity 1.025 (1.005-1.030)
[2018-05-24] MEDS ORDERED: Ringers Lactate 1,000 ML IV ONE (11:12)
[2018-05-24] MEDS ORDERED: SIMETHICONE 40 MG/ 0.6 ML ONE (11:26)
[2018-05-24] MEDS ORDERED: PROPOFOL 200 MG/20 ML VIAL IV ONE ×2 (11:35→12:27)
[2018-05-24] MEDS ORDERED: LIDOCAINE 1% MPF 2 ML AMPULE ONE (11:36)
[2018-05-24] MEDS ORDERED: ONDANSETRON HCL 40 MG/20 ML VIAL ONE (11:36)
[2018-05-24] MEDS ORDERED: FENTANYL CITR 100 MCG/2 ML ONE (11:36)
[2018-05-24] MEDS ORDERED: GLUCAGON 1 MG/VIAL IV ONE (12:00)
[2018-05-24] MEDS ORDERED: MIDAZOLAM HCL 2 MG/2 ML INJ ONE (12:00)
--- NOTE | 2018-05-24 12:18 | ENDO RPT ---
[address], [address] ERCP PROCEDURE REPORT EXAM DATE: 05/24/2018 PATIENT NAME: Alanna Pathak MR #: [id number] BIRTHDATE: 1990 ATTENDING: Irving Herrera Dr STATUS: outpatient SWING GRINDER: Naa Millan and Whitney Jasso RN INDICATIONS: The patient is a 27 yr old Female here for an ERCP due to abdominal pain, abnormal imaging (MRCP revealed 3 mm stone in CBD), abnormal Liver Function Tests, and stone PROCEDURE PERFORMED: ERCP with sphincterotomy, ERCP with balloon passage, ERCP with removal of stones, and ERCP with stent placement MEDICATIONS: Per Anesthesia. CONSENT: The patient understands the risks and benefits of the procedure and understands that these risks include, but are not limited to: sedation, allergic reaction, infection, perforation and/or bleeding. Alternative means of evaluation and treatment include, among others: physical exam, x-rays, and/or surgical intervention. The patient elects to proceed with this endoscopic procedure. DESCRIPTION OF PROCEDURE: During intra-op preparation period all mechanical medical equipment was checked for proper function. Hand hygiene and appropriate measures for infection prevention was taken. Procedure, possible complications, and alternatives including but not limited to the possibility of bleeding, perforation, tear, infection, sepsis, need for surgery, need for blood transfusion, and anesthesia related complications were explained to the patient. In addition, 5-30% incidence of acute pancreatitis as a result of ERCP were explained. After the risks, benefits and alternatives of the procedure were thoroughly explained, Informed was verified, confirmed and timeout was successfully executed by the treatment team. With the patient in left semi-prone position, medications were administered intravenously.The [id number] ([id number]) was passed from the mouth into the esophagus and further advanced from the esophagus into the stomach. From stomach scope was directed to the second portion of the duodenum. Major papilla was aligned with the duodenoscope. The scope position was confirmed fluoroscopically. Rest of the findings/therapeutics are given below. The scope was then completely withdrawn from the patient and the procedure completed. The pulse, BP, and O2 saturation were monitored and documented by the physician and the nursing staff throughout the entire procedure. The patient was cared for as planned according to standard protocol. The patient was then discharged to recovery in stable condition and with appropriate post procedure care. A 3 mm stone was found in the common bile duct. Sphincterotomy was performed with a regular 20 mm papillotome. A stone retrieval balloon was passed. A straight stent was placed. The pancreatic duct was filled to the tail and appeared to be normal. Care was taken not to overfill the ductal system. ADVERSE EVENT: none IMPRESSIONS: 1. A 3 mm stone in the common bile duct, s/p sphincterotomy, 9 mm balloon catheter passage with extraction of stone / debris 2. The pancreatic duct was filled to the tail and appeared to be normal. Care was taken not to overfill the ductal system. RECOMMENDATIONS: 1. antibiotics 2. cholecystectomy REPEAT EXAM: Return in 2 week(s) for ERCP. Irving Herrera Dr eSigned: Irving Herrera Dr 05/24/2018 12:17 PM cc: Zhang Lora M.D. CPT CODES: ICD9 CODES: PATIENT NAME: Alanna Pathak MR#: [id number]
[2018-05-24] MEDS ORDERED: CEFAZOLIN/SWI 2gm 2 GM/20 ML SYR IV ONE (12:45)
[2018-05-24] MEDS: Ringers Lactate 1,000 ML IV ONE ×2 (12:55→14:04)
--- NOTE | 2018-05-24 13:18 | RAD REPORT ---
EXAM DESCRIPTION: RAD - Fluoroscopy ERCP - 05/24/2018 12:37 pm CLINICAL HISTORY: Abdominal pain FINDINGS: The common bile duct was cannulated and contrast administered. The exam was performed by Nicolas Herrera Small filling defect within the distal common bile duct is compatible with a stone. Subsequently a st ent was placed. 7 fluoroscopic spot images are submitted. Fluoroscopy time 4 minutes 9 seconds
[2018-05-24] MEDS ORDERED: GLUCAGON 1 MG/VIAL ONE (13:34)
[2018-05-24 14:34] VITALS: O2SAT 98
[2018-05-24 14:37] VITALS: BP 134/84; TEMP 98
== END 2018-05-24 14:25 | disposition home or self-care (01) ==
LOC: OR 10:29
PROVIDERS: ATTEND Internal Medicine Gastroenterology
PROC: 0F798DZ Dilation of Common Bile Duct with Intraluminal Device, Via Natural or Artificial Opening Endoscopic (ICD-10-PCS; 2018-05-24)
PROC: 0FC98ZZ Extirpation of Matter from Common Bile Duct, Via Natural or Artificial Opening Endoscopic (ICD-10-PCS; principal; 2018-05-24 11:30)
DX: K80.50 Calculus of bile duct without cholangitis or cholecystitis without obstruction (principal); R10.11 Right upper quadrant pain; K21.9 Gastro-esophageal reflux disease without esophagitis; Z88.8 Allergy status to other drugs, medicaments and biological substances; R12 Heartburn; E66.9 Obesity, unspecified; Z68.41 Body mass index [BMI] 40.0-44.9, adult
CPT/HCPCS: 81025; C1769; C2625; J0690; J1580; J1610; J2001; J2250; J2405; J3010

== ENCOUNTER 2018-05-26 15:41 | Observation (INO) | payer BC ==
[2018-05-26] MEDS ORDERED: ONDANSETRON 4 MG/2 ML VIAL IV PRN (16:29)
[2018-05-26] MEDS ORDERED: ACETAMINOPHEN 500 MG TAB PO PRN (16:29)
[2018-05-26] MEDS ORDERED: MORPHINE 2 MG/ML SYR IV PRN (16:29)
[2018-05-26 16:54] VITALS: BMI 42.9
[2018-05-26] MEDS ORDERED: D5 0.45 NS 1,000 ML IV SCH (17:00)
[2018-05-26 17:02] LABS: Specific Gravity <= 1.005 (1.005-1.030)
[2018-05-26 17:08] LABS: Absolute Lymphocytes (CBC) 1.4 K/uL (0.7-4.9); Absolute Monocytes 0.3 K/uL (0.1-1.3); Absolute Neutrophil 4.4 K/uL (1.8-8.0); Basophils % 0.5 % (0-1.3); Eosinophils % 1.5 % (0-4.4); Hematocrit 35.9 % (36.0-45.0); Lymphocytes % 22.3 % (15.3-44.8); MCH 22.9 pg (27.0-35.0); MCV 71.8 fL (80-100); MPV 10.4 fL (7.6-11.3); Monocytes % 5.3 % (3.3-12.3)
[2018-05-26 17:24] LABS: Albumin 3.8 g/dL (3.4-5.0); Bilirubin Total 0.3 mg/dL (0.2-1.0); Potassium 3.5 mmol/L (3.5-5.1); Protein, Total 7.3 g/dL (6.4-8.2)
[2018-05-26] MEDS: METRONIDAZOLE 500mg IVPB 500 MG/100 ML BAG IV SCH (18:11)
[2018-05-26] MEDS: CIPROFLOXACIN 400mg IV 400 MG/200 ML BAG IV SCH (18:11)
--- NOTE | 2018-05-26 20:22 | RAD REPORT ---
EXAM DESCRIPTION: US - Abdomen Exam Complete - 05/26/2018 8:14 pm CLINICAL HISTORY: Abdominal pain. abdominal pain, recent ERCP COMPARISON: Abdomen Pelvis W Contrast dated 05/11/2018; Abdomen Pelvis W Contrast dated 04/16/2018 FINDINGS: The liver is normal in size, shape and echotexture. No focal liver lesions or intrahepatic biliary dilatation is seen. Cholecystectomy clips. Common bile duct is normal in caliber measuring 5 millimeters. Both kidneys are normal in size, shape and echotexture. No hydronephrosis, focal lesion of concern or perinephric fluid. The spleen is upper limit of normal measuring 13 cm The pancreas and aorta are obscured by bowel gas. The visualized aspects of the IVC are grossly normal. IMPRESSION: Unremarkable study except for limited assessment of the pancreas and aorta due to bowel gas.
[2018-05-26 20:33] LABS: Urine Appearance CLEAR; Urine Bilirubin NEGATIVE (NEG); Urine Blood NEGATIVE (NEG); Urine Color YELLOW; Urine Glucose NEGATIVE (NEG); Urine Protein NEGATIVE (NEG); Urine Specific Gravity <=1.005 (1.005-1.030); Urine Urobilinogen 0.2 mg/dL (0.2-1.0); Urine pH 6.5 (5.0-7.0)
[2018-05-26 20:48] LABS: Urine Bacteria <20 /HPF (<20); Urine Culture Reflex Order NOT NEEDED; Urine RBC <5 /HPF (NONE SEEN)
[2018-05-26] MEDS ORDERED: POTASSIUM 25 MEQ EFFERV TAB PO ONE (21:00)
[2018-05-26 22:29] LABS: Amylase Level 21 U/L (25-115); Lipase 65 U/L (73-393)
[2018-05-26] MEDS: Ringers Lactate 1,000 ML IV SCH (22:34)
[2018-05-27] MEDS: METRONIDAZOLE 500mg IVPB 500 MG/100 ML BAG IV SCH ×3 (01:18→17:06)
--- NOTE | 2018-05-27 02:30 | HP ---
Date of Admission: 05/26/2018 Chief Complaint: Abdominal pain, nausea. Code Status: Full. History Of Present Illness: The patient is a 27-year-old female with no significant past medical history other than incidental finding of diverticulosis , who was recently discharged from the hospital on Tuesday when the patient had endoscopy done by Dr. Herrera on 05/24/2018. MRCP showed common bile duct stone and ERCP was done with sphincterotomy, balloon passage and removal of stones, and stent placement. Since then, the patient has been having abdominal pain radiating to her back in between the shoulder blades. She also has some nausea but no vomiting. The patient is on a clear-liquid diet, not able to tolerate anything more than that. Her symptoms are constant, moderate, progressively worsening. No alleviating or aggravating factors. The patient was sent directly to the hospital by Dr. Herrera for further evaluation and workup. When the patient was seen, she was awake, alert, oriented x3, in some mild distress. Past Medical History: None. Surgical History: and cholecystectomy. Allergies: TO TAMIFLU, OMEPRAZOLE, AND EQUATE COUGH SYRUP. Social History: The patient denies any tobacco use, alcohol use, or illicit drug use. She has good social support. She has 1 child. Family History: Heart disease runs in the family but no premature coronary . Review of Systems: An 11-point system reviewed, negative except as per HPI. Physical Examination: VITAL SIGNS: Stable, afebrile. GENERAL: Awake, alert, oriented x3, morbidly obese female, in some mild distress. HEENT: Normocephalic, atraumatic. PERRLA. EOMI. Dry mucous membranes. Oropharynx is clear, normal dentition. Conjunctivae are anicteric. NECK: Supple. No JVD. Trachea midline. CV: S1, S2. Regular rate and rhythm. Peripheral pulses present. No murmurs. RESPIRATORY: Clear to auscultation bilaterally. No wheezing. No stridor. No use of accessory muscles. GASTROINTESTINAL: Abdomen is soft. Mild tenderness to palpation in the right upper quadrant. No guarding or rigidity. No distention. Bowel sounds are positive. No hepatomegaly. EXTREMITIES: No clubbing, cyanosis, or edema. No calf tenderness. NEURO: Cranial nerves 2-12 intact grossly. No focal neurological deficits. Speech is normal. Strength is 5/5 in bilateral upper and lower extremities. SKIN: No rashes. Normal skin turgor. PSYCH: Mood is okay. Affect is full. Insight and judgment are good. Laboratory Data: Pending. Assessment And Plan: A 27-year-old female with: 1. Intractable abdominal pain. The patient is recently status post ERCP with stone removal. We will obtain CBC, CMP, abdominal ultrasound to further evaluate the etiology. We will obtain UA and urine test. Dr. Herrera has been consulted. 2. Morbid obesity. 3. Intractable nausea without vomiting. We will continue with IV antiemetics. 4. Gastrointestinal/deep venous thrombosis prophylaxis with SCDs and ranitidine. The patient is allergic to PPI. 5. History of diverticulosis. Plan: Ad[facility] the [facility] to [facility] as observation. CHRIS Voice ID: [id number] MTDD
[2018-05-27] MEDS: Ringers Lactate 1,000 ML IV SCH ×4 (05:17→20:46)
[2018-05-27 06:20] LABS: ALT/SGPT 34 U/L (12-78); AST/SGOT 15 U/L (15-37); Albumin 3.1 g/dL (3.4-5.0); Alkaline Phosphatase 92 U/L (45-117); Amylase Level 20 U/L (25-115); BUN Blood Urea Nitrogen 3 mg/dL (7-18); Bicarbonate 26 mmol/L (21-32); Bilirubin Total 0.3 mg/dL (0.2-1.0); Glucose Level 76 mg/dL (74-106); Lipase 59 U/L (73-393); Magnesium 1.8 mg/dL (1.8-2.4); Phosphorus 3.7 mg/dL (2.5-4.9); Potassium 3.4 mmol/L (3.5-5.1); Protein, Total 6.1 g/dL (6.4-8.2); Sodium Level 145 mmol/L (136-145)
[2018-05-27] MEDS ORDERED: POTASSIUM CL SA 10 MEQ TAB PO ONE ×2 (06:34→16:28)
[2018-05-27] MEDS ORDERED: MAGNESIUM SULFATE 1 gm IVPB 1 GM/100 ML BAG IV ONE (09:00)
[2018-05-27] MEDS: CIPROFLOXACIN 400mg IV 400 MG/200 ML BAG IV SCH ×2 (09:24→20:38)
[2018-05-27] MEDS ORDERED: GENTAMICIN SULF 80 MG/2ML INJ ONE (12:53)
[2018-05-27] MEDS ORDERED: GLUCAGON 1 MG/VIAL ONE (12:53)
[2018-05-27] MEDS ORDERED: Ringers Lactate 1,000 ML IV ONE (13:35)
[2018-05-27] MEDS ORDERED: PROPOFOL 200 MG/20 ML VIAL IV ONE ×2 (14:27)
[2018-05-27] MEDS ORDERED: ONDANSETRON HCL 40 MG/20 ML VIAL ONE (15:27)
[2018-05-27] MEDS ORDERED: FENTANYL CITR 100 MCG/2 ML ONE (15:27)
--- NOTE | 2018-05-27 16:18 | RAD REPORT ---
EXAM DESCRIPTION: Janes Single View05/27/2018 3:51 pm CLINICAL HISTORY: Chest pain COMPARISON: May 11, 2018 FINDINGS: The lungs appear clear of acute infiltrate. The heart is normal size IMPRESSION: No acute abnormalities displayed
--- NOTE | 2018-05-27 16:23 | RAD REPORT ---
EXAM DESCRIPTION: RADFluoroscopy ERCP05/27/2018 3:57 pm CLINICAL HISTORY: Abdominal pain FINDINGS: The examination was performed by Dr. Herrera. The common bile duct was cannulated and cont rast administered. The bile duct is normal caliber. A biliary stent was removed. Please refer to the performing physicia n's notes for additional findings. Four fluoroscopic spot images are submitted. Fluoroscopy time 57 seconds
--- NOTE | 2018-05-27 18:03 | PN ---
Subjective: Currently, the patient lying in bed. She looks comfortable. She had no chest pain. No abdominal pain. No nausea or vomiting, but she had not eaten anything since the morning. Physical Examination: Vital Signs: Blood pressure 133/62, respiratory rate 17, pulse 61, temperature 97.3. General: The patient is alert and oriented x3. Does not look in any distress. HEENT: Atraumatic, normocephalic. PERRLA. Oral mucosa is moist. Neck: Supple. No JVD. No carotid bruits. Chest: Clear to auscultation. Good air entry. Heart: Regular rate and rhythm. S1, S2 normal. No gallop or murmur. Abdomen: Soft. Minimal tenderness in the right upper quadrant. No guarding. No rebound. Positive bowel sounds. Extremities: No clubbing, cyanosis, or edema. No calf tenderness. Neurologic: Grossly intact. Cranial nerve exam 2 through 12 intact. Normal sensation. Normal refl exes. Normal muscle tone. Skin: No rash. Diagnostic Studies: Lab: CBC done yesterday, showed mild anemia with hemoglobin of 11.4. CMP done this morning; potassium 3.4, replaced. LFTs within normal. Lipase 59. Amylase 20. Assessment And Plan: 1.Intractable abdominal pain status post endoscopic retrograde cholangiopancreatogram with stone rem oval. The patient's labs CBC and all within normal including LFTs, and amylase, lipase are normal. Ultrasound was negative for stones, but the patient is going to have ERCP today hopefully. UA was do ne upon admission and was negative. No culture needed. 2.Morbid obesity. 3.Nausea much better. The patient n.p.o. still. 4.Gastrointestinal prophylaxis on the next day. 5.Hypokalemia, replaced. Potassium is normal. 6.She is on empiric antibiotic with Cipro and Flagyl, which we will discontinue after endoscopic ret rograde cholangiopancreatogram, if no need. 7.Discharge would be when abdominal pain resolved and the patient able to tolerate a diet without na usea and abdominal pain. LUCRETIA/CANDY Voice ID: [id number] Report ID: [id number]
[2018-05-28] MEDS: METRONIDAZOLE 500mg IVPB 500 MG/100 ML BAG IV SCH ×2 (01:47→08:15)
[2018-05-28] MEDS: Ringers Lactate 1,000 ML IV SCH (04:23)
[2018-05-28 05:58] LABS: BUN Blood Urea Nitrogen 3 mg/dL (7-18); Bicarbonate 24 mmol/L (21-32); Glucose Level 77 mg/dL (74-106); Potassium 3.5 mmol/L (3.5-5.1); Sodium Level 142 mmol/L (136-145)
[2018-05-28] MEDS ORDERED: POTASSIUM CL SA 10 MEQ TAB PO ONE (06:20)
[2018-05-28] MEDS: CIPROFLOXACIN 400mg IV 400 MG/200 ML BAG IV SCH (08:16)
[2018-05-28 08:32] VITALS: O2SAT 98
[2018-05-28] MEDS ORDERED: CEFAZOLIN/SWI 2gm 2 GM/20 ML SYR IV ONE (09:00)
[2018-05-28] MEDS ORDERED: levoFLOXacin 500 MG TAB PO ONE (10:00)
[2018-05-28] MEDS ORDERED: metroNIDAZOLE 500 MG TABLET PO ONE (10:00)
--- NOTE | 2018-05-28 10:41 | P.PN ---
Subjective Date of Service: 05/28/18 Chief Complaint: Upper abdominal pain and back pain with normal liver chemistries/ lipase Subjective: Improving (She is pain-free now and feels well. She has not used any pain medications) Review of Systems Unremarkable Physical Examination - Vital Signs Temperature: 97.2 F Blood Pressure: 134/80 Pulse: 71 Respirations: 17 Pulse Ox (%): 98 - Physical Exam General: Alert, In no apparent distress, Oriented x3, Cooperative HEENT: Atraumatic, Normocephalic, PERRLA, EOMI Neck: Supple Respiratory: Normal air movement Gastrointestinal: Soft and benign, No tenderness, No rebound, No guarding Neurological: Normal speech, Normal strength at 5/5 x4 extr - Studies Laboratory Data (last 24 hrs) 05/28/18 05:16: Sodium 142, Potassium 3.5, BUN 3 L, Creatinine 0.60, Glucose 77 , Magnesium 2.0 05/27/18 12:45: Potassium 3.7 Assessment And Plan - Current Problems (Diagnosis) (1) Epigastric abdominal pain Current Visit: Yes Status: Acute (2) Back pain Current Visit: Yes Status: Acute - Plan REC: 1) advance diet 2) can discharge home 3) GI clinic f/u in 1-2 weeks
[2018-05-28 12:57] VITALS: BP 138/77; TEMP 97.7
--- NOTE | 2018-05-29 06:26 | DS ---
Date of Discharge: 05/28/2018 Discharge Diagnoses: 1.Abdominal pain, resolved. 2.Hypokalemia, resolved. 3.Overweight. Consult: Dr. Herrera. Procedure: Abdominal ultrasound was normal except for limited assessment of the pancreas. ERCP done by Dr. Herrera. Report still pending, but stent was removed. History Of Present Illness: Please refer to Dr. Morton's admission note. Hospital Course: Initially, the patient presented with abdominal pain to Dr. Herrera's office, status post ERCP with stent placement. Dr. Herrera advised to admit her to the hospital. Her labs were nor mal. Ultrasound of the abdomen was normal. Dr. Herrera proceeded with ERCP next morning and removed the stent. The patient felt much better, and she will be discharged home today to follow up with Dr. Herrera in 2 weeks. No need for antibiotics. She will continue using her nausea medication as neede d as well as pain if any. At this point, the patient has no nausea or pain. Discharge Condition: Stable. Discharge Diet: Regular. I advised the patient to start with liquid and advance as she tolerates. Discharge Followup: With Dr. Herrera in 2 weeks. Discharge Medications: Zofran 8 mg every 8 hours as needed for pain, Phenergan 12.5 mg every 6 hours as needed, tramadol 50 mg orally every 4 hours as needed. Physical Examination: Vital Signs: Upon discharge, blood pressure is 134/80, respiratory rate 18, pulse 71, temperature 97 .2. General: The patient is alert and oriented x3. Does not look in any distress. HEENT: Atraumatic, normocephalic. PERRLA. Oral mucosa is moist. Neck: Supple. No JVD. No carotid bruits. Chest: Clear to auscultation. Good air entry. Heart: Regular rate and rhythm. S1, S2 normal. No gallop or murmur. Abdomen: Soft, nontender. No masses. No hepatosplenomegaly. Positive bowel sounds. Extremities: No clubbing, no cyanosis, or edema. No calf tenderness. Neurologic: Grossly intact. MT/MODL Voice ID: [id number] Report ID: [id number]
--- NOTE | 2018-05-29 09:32 | CON ---
Date of Consultation: 05/27/2018 Reason For Consultation: Persistent midepigastric pain and back pain, status post ERCP with stent wi th normal liver chemistries and normal amylase and lipase. History Of Present Illness: The patient is a 27-year-old white female who presented as an outpatient due to a positive MRCP showing stone in the common bile duct. ERCP was done with sphincterotomy, __ stone, stent placement, some bleeding at that time. The patient did well postop, however, continued to have pain in the upper abdomen and also in the back despite conservative treat ment as an outpatient with first day after procedure. The patient continued to have pain, decided to admit the patient to the hospital on the weekend . The patient was admitted Fr iday, did well overnight. Amylase and lipase on Tuesday as well Tuesday morning were both normal as were her liver chemistries. The patient states the pain felt somewhat better, but she continued to h ave some pain in her back and some in the upper abdomen. She denied any melena, hematochezia, hemate mesis, coffee-ground emesis, hematuria, dysuria, polydipsia, , shortness of breath ___. She did have back pain chest pain, shortness of breath, seizure, syncope. Past Surgical History: Significant for cholecystectomy and and ERCP with stent placement. Medications: At home, pain medicines . Allergies: TAMIFLU, OMEPRAZOLE, EQUATE COUGH SYRUP. Social History: She is . One child 9-month-old. No tobacco. No alcohol. Family History: Heart disease noted in the family. Review of Systems: The patient has some upper abdominal pain in midepigastric and also some back pain in the mid back, _ some nausea, but no emesis. No fevers, chills, night sweats. No melena, hematochezia, hem atemesis, coffee-ground emesis, hematuria, dysuria, polydipsia, chest pain, shortness of breath, seiz ure, syncope, lower extremity edema, muscle aches, joint aches, but she did have backaches. No depre ssion, anxiety. Physical Examination: Vital Signs: The patient is 5 feet 7 inches, 274 pounds, BMI 42.9 kg/meter squared, temperature 97.8 degrees Fahrenheit, pulse 89, respirations 16, blood pressure 136/76, O2 saturation 100%. General: She is an obese female, lying in bed, in no acute distress. HEENT: Normocephalic, atraumatic. Anicteric. Pupils equal, round, and reactive to light. Extraocu lar movements are intact. Oropharynx is clear. Neck: Supple. No masses. Respirations: Clear to auscultation bilaterally. Cardiac: Regular rate and rhythm. No gallops or rubs. Abdomen: Positive bowel sounds. Soft, nondistended, and nontender. No rebound. No peritoneal or M urphy sign. Extremities: No clubbing, cyanosis, or edema. 2+ pulses. Neuro: Alert and oriented x3. Grossly nonfocal. 5/5 motor. Sensation intact to light touch. Laboratory Data: The patient has a white count of 6.2, hemoglobin 11.4, hematocrit 36, MCV of 72, pl atelet count 184, polys of 70%, lymphocytes 20%, monocytes 5%, eosinophils 2%. The patient _ sodium 145, potassium 3.4, chloride 109, bicarb 26, BUN 3, creatinine 0.7, glucose 76, calcium 8.3, phosphorus 3.7, magnesium 1.8, total bilirubin 0.3, AST of 15, ALT of 34, alkaline phosphatase 92, t otal protein 6.1, albumin 3.1, amylase of 20, lipase of 59. Yesterday, the patient had an amylase of 21, lipase of 65. Urine test is negative. UA, 3+ ketones, 10 to 20 squamous epithelial c ells otherwise negative. Ultrasound of abdomen which was done yesterday, unremarkable tejal dy. Cholecystectomy clips in place, otherwise negative. Impression: 1.Persistent midepigastric pain and back pain, status post endoscopic retrograde cholangiopancreatog siomara with stent with normal liver chemistries and amylase and lipase, normal while in the hospital yesterday and today, irritation, therefore we persistent irritation causing her some pain in the upper abdomen and back. no other problems in the gallbladder fossa and diaphragmatic area. 2.Proceed with endoscopic retrograde cholangiopancreatography with stent removal. 3.Continue IV fluids. 4.Continue p.r.n. pain medicines, antiemetics. 5.Monitor labs. LINH/MODL Voice ID: [id number] Report ID: [id number]
== END 2018-05-28 13:03 | disposition home or self-care (01) ==
LOC: 4TH 16:00
PROVIDERS: ADMIT Family Medicine; ATTEND Family Medicine
PROC: 0FPB8DZ Removal of Intraluminal Device from Hepatobiliary Duct, Via Natural or Artificial Opening Endoscopic (ICD-10-PCS; principal; 2018-05-27 14:00)
DX: R10.13 Epigastric pain (principal); E87.6 Hypokalemia; R11.2 Nausea with vomiting, unspecified; E66.01 Morbid (severe) obesity due to excess calories; Z68.41 Body mass index [BMI] 40.0-44.9, adult; M54.9 Dorsalgia, unspecified; Z90.49 Acquired absence of other specified parts of digestive tract
CPT/HCPCS: 36415; 71045; 76700; 80048; 80053; 81001; 81025; 82150; 83690; 83735; 84100; 84132; 84703; 85025; 94760; G0378; J0690; J0744; J1580; J1610; J2405; J3010; J3475

== ENCOUNTER 2019-02-22 00:17 | Inpatient (IN) | payer BC ==
[2019-02-22] MEDS ORDERED: Ringers Lactate 1,000 ML IV PRN (04:12)
[2019-02-22] MEDS ORDERED: NA CIT/CITRIC AC 30 ML ORAL UDC PO ONE (04:19)
[2019-02-22] MEDS ORDERED: CEFAZOLIN/SWI 2gm 2 GM/20 ML SYR ONE ×2 (04:55→07:51)
[2019-02-22] MEDS ORDERED: Ringers Lactate 1,000 ML IV SCH (05:00)
[2019-02-22] MEDS ORDERED: CEFAZOLIN 2 GM in NA CHLORIDE 0.9% 100 ML IVPB SCH (05:00)
[2019-02-22] MEDS ORDERED: METOCLOPRAMIDE 10 MG/2mL INJ IV SCH (05:00)
[2019-02-22 05:08] LABS: RPR Titer ND
[2019-02-22 05:16] LABS: Urine Appearance CLOUDY; Urine Bilirubin NEGATIVE (NEG); Urine Blood NEGATIVE (NEG); Urine Color YELLOW; Urine Glucose NEGATIVE (NEG); Urine Protein NEGATIVE (NEG); Urine Urobilinogen 0.2 mg/dL (0.2-1.0)
[2019-02-22 05:18] LABS: Absolute Lymphocytes (CBC) 2.4 K/uL (0.7-4.9); Absolute Monocytes 0.5 K/uL (0.1-1.3); Absolute Neutrophil 6.1 K/uL (1.8-8.0); Basophils % 0.6 % (0-1.3); Eosinophils % 1.3 % (0-4.4); Hematocrit 36.1 % (36.0-45.0); Lymphocytes % 26.3 % (15.3-44.8); MPV 10.6 fL (7.6-11.3); Monocytes % 5.4 % (3.3-12.3); RBC Red Blood Cell Count 4.53 M/uL (3.86-4.86)
[2019-02-22 05:55] LABS: Urine Culture Reflex Order REFLEXED
[2019-02-22 05:56] LABS: Urine Bacteria 20-50 /HPF (<20); Urine RBC NONE SEEN /HPF (NONE SEEN)
[2019-02-22 05:59] LABS: RPR (Rapid Plasma Reagin) NON-REACT (NON-REACT)
[2019-02-22 07:19] VITALS: BMI 48.6
[2019-02-22] MEDS ORDERED: MORPHINE SULFATE/PF 1 MG/ML (10 ML AMP) ONE (07:37)
[2019-02-22] MEDS ORDERED: OXYTOCIN 10 UNIT/ML ML IV ONE (07:51)
[2019-02-22] MEDS ORDERED: CARBOPROST TROME 250 MCG/ML IM ONE (07:52)
[2019-02-22] MEDS ORDERED: PROPOFOL 200 MG/20 ML VIAL IV ONE (08:08)
[2019-02-22] MEDS ORDERED: METHYLERGONOVINE 0.2MG/ML AMP IM ONE (08:20)
[2019-02-22] MEDS ORDERED: EPHEDRINE SULF 50 MG/ML VIAL ONE (08:21)
[2019-02-22] MEDS ORDERED: KETAMINE HCL 500 MG/5 ML VIAL ONE (08:28)
[2019-02-22] MEDS ORDERED: MIDAZOLAM HCL 2 MG/2 ML INJ ONE (08:28)
[2019-02-22] MEDS ORDERED: KETOROLAC 30 MG/ML INJ IV PRN (08:45)
[2019-02-22] MEDS ORDERED: KETOROLAC 30 MG/ML INJ IM PRN (08:45)
[2019-02-22] MEDS ORDERED: ONDANSETRON 4 MG (ODT) TAB PO PRN (08:45)
[2019-02-22] MEDS ORDERED: DIPHENHYDRAMINE 25 MG TAB/CAP PO PRN (08:45)
[2019-02-22] MEDS ORDERED: ACETAMINOPHEN 500 MG TAB PO PRN ×2 (08:45)
[2019-02-22] MEDS ORDERED: BISACODYL 10 MG RECTAL SUPP RECT PRN (08:45)
[2019-02-22] MEDS ORDERED: Oxycodone HCl/Acetaminophen 1 TAB TAB PO PRN ×2 (08:45)
[2019-02-22] MEDS ORDERED: ONDANSETRON 4 MG/2 ML VIAL IV PRN (08:45)
[2019-02-22] MEDS ORDERED: FAMOTIDINE 20 MG/2 ML VIAL IV SCH (09:00)
[2019-02-22] MEDS ORDERED: OXYTOCIN/LR 20 UNIT/1,000 ML BAG IV SCH (09:00)
[2019-02-22] MEDS ORDERED: D5LR 1,000 ML with OXYTOCIN 20 UNIT IV SCH ×2 (09:00)
[2019-02-22] MEDS ORDERED: CEFAZOLIN/SWI 2gm 2 GM/20 ML SYR IV SCH (09:21)
[2019-02-22] MEDS ORDERED: CEFAZOLIN/SWI 1gm 1 GM/10 ML SYR IV SCH (09:30)
[2019-02-22] MEDS ORDERED: CEFAZOLIN/SWI 2gm 2 GM/20 ML SYR IVP SCH (16:45)
--- NOTE | 2019-02-22 17:04 | OP ---
Surgeon: Brian Burciaga MD Indications: A 28-year-old 4, para 1, previous for failure to progress. Known twi n gestation, 37 weeks now. Full preoperative counseling concerning procedure and possible complicati ons, including infection, blood loss, anesthetic complications, injury to bladder, bowel, ureter, pos toperative complications, clots in legs, pneumonia. The patient knows fully well, this does not cons titute all the problems that could occur during or following surgery. Because of her large size, she knows that she is at increased risk for all of these complications. to have vasectomy. Procedure In Detail: After spinal block anesthesia, the patient was prepped and draped in the steril e manner, placed in dorsal supine position. Timeout was performed. Pfannenstiel incision was create d, lower than the previous incision with patient's permission. The incision was carried to the fasci a. The fascia was incised and incision carried transversely bilaterally. Anterior fascial plane was developed with both blunt and sharp dissection. The underlying rectus muscle was easily a nd peritoneum was entered bluntly and retraction applied. Low transverse uterine incision created. Twin A, a female, 6-pound 11-ounce, delivered without difficulties. Apgars 9 and 9. Twin B, male, b reech presentation, delivered without difficulties. Apgars 9 and 9. Cord blood samples were obtaine d. The placenta was removed. Mild hypotonus was noted, 0.2 mg of Methergine IM. Uterus contracted down well. Estimated blood loss during procedure 850-900 cc. Uterus closed with a running locked st itch of 1 chromic, followed by 2 [id number] stitches in the left, 1 in the right for complete he mostasis. Gutters clear of clot and blood. Uterus was replaced in the peritoneal cavity. Inspectio n of the suture line showed no further bleeding. The muscles were then reapproximated with 1 Vicryl 3 interrupted sutures. Fascia was closed with 1 PDS, running from either angle to the midline. Subc utaneous tissue was closed with 2-0 plain. Absorbable ambar placed and then metal ambar. The pa tient had been given 2 g of Ancef prior to the procedure. Tolerated all procedures well. Transferre d back to her room in good condition. Final Diagnoses: 1.Term intrauterine , 37 weeks, with twins. 2.Repeat section. 3.Spinal block anesthesia. 4.Mild uterine hypotonus. BRIJESH/CANDY Voice ID: [id number] Report ID: [id number]
[2019-02-23] MEDS ORDERED: Ringers Lactate 1,000 ML IV ONE (03:55)
[2019-02-23] MEDS: IBUPROFEN 200 MG TAB PO PRN ×3 (06:15→23:58)
[2019-02-23] MEDS ORDERED: MAGNESIUM HYDROXIDE 8% 30 ML PO PRN (08:45)
--- NOTE | 2019-02-23 11:59 | PN ---
Postoperatively, patient has done quite well. We will discontinue her Ramirez and IV this morning. En courage ambulation, and p.o. intake. If she does well, should be able go home tomorrow. No complain ts offered. We went over everything postoperatively. We will go over it again tomorrow. BRIJESH/CANDY Voice ID: [id number] Report ID: [id number]
[2019-02-24 08:22] VITALS: BP 129/78; TEMP 96.8
[2019-02-25 18:34] LABS: HBsAG Nonreactive (Nonreactive)
--- NOTE | 2019-02-27 06:51 | DS ---
Date of Discharge: 02/24/2019 Hospital Course: A 28-year-old, repeat section, twin gestation, 37 weeks. The patient was delivered of a 6-pound 11-ounce female, 7-pound 11-ounce male, Apgars 9 and 9 both. Mild uterine hyp otonus at the time of surgery, had 850-900 cc blood loss. Methergine 0.2 mg IM given at time of surg heide. Rh positive, immune to Rubella. Negative beta strep screen. Postoperatively has done well, is afebrile, ambulating, voiding. Lochia is normal. Incision looks good. No post spinal block proble ms. The patient is bottle-feeding. She will be dismissed later this morning to report back to [facility] next week for staple removal. To report any temperature elevation of 100 degrees or greater, se stevie pain, heavy bleeding, or any other type of abnormalities. She has had her Tdap immunization. S he knows because she has a large woman, she should stay active at home to prevent thromboembolic comp lications. This has been thoroughly discussed during the and again today. Full instructio ns given. Final Diagnoses: Intrauterine gestation, twins, 37 weeks. Repeat section. Mild uterine hy potonus. Spinal block anesthesia. BRIJESH/CANDY Voice ID: [id number] Report ID: [id number]
--- NOTE | 2019-02-27 07:00 | PN ---
An inspection of the incision, it looks great. There is no oozing. In the center part of the incisi on, where there was a gap between ambar, probed a little bit with a sterile Q-tip but I can't get a nything to come out. I do not think she has a seroma at this point. She is obviously high risk for seroma because of her large size and depths of the incision. Right now I do not think she needs anyt linda other than continued observation. BRIJESH/CANDY Voice ID: [id number] Report ID: [id number]
== END 2019-02-24 09:50 | disposition home or self-care (01) | DRG 787 ==
LOC: 2ND-WC 04:08 → UNDODISIN 02-23 15:54
PROVIDERS: ADMIT Specialist; ATTEND Specialist
PROC: 10D00Z1 Extraction of Products of Conception, Low, Open Approach (ICD-10-PCS; principal; 2019-02-22 07:30)
DX: O30.003 Twin pregnancy, unspecified number of placenta and unspecified number of amniotic sacs, third trimester (principal); Z68.42 Body mass index [BMI] 45.0-49.9, adult; Z3A.37 37 weeks gestation of pregnancy; Z37.2 Twins, both liveborn; O62.2 Other uterine inertia; O99.214 Obesity complicating childbirth; E66.01 Morbid (severe) obesity due to excess calories
CPT/HCPCS: 36415; 81001; 85014; 85025; 86592; 86850; 86900; 86901; 87086; 87088; 87340; 88307; J0690; J2210; J2250; J2590; J2704; J2765

== ENCOUNTER 2021-03-09 02:58 | Emergency (ER) | payer BC ==
[2021-03-09] MEDS ORDERED: NA CHLORIDE 0.9% 1,000 ML ONE ×2 (03:54→05:03)
[2021-03-09 04:08] LABS: Protime INR 1.13
[2021-03-09 04:37] LABS: ALT/SGPT 19 U/L (12-78); AST/SGOT 15 U/L (15-37); Albumin 3.7 g/dL (3.4-5.0); Alkaline Phosphatase 82 U/L (45-117); BUN Blood Urea Nitrogen 7 mg/dL (7-18); Bicarbonate 21 mmol/L (21-32); Bilirubin Direct < 0.1 mg/dL (0-0.2); Bilirubin Total 0.3 mg/dL (0.2-1.0); Glucose Level 116 mg/dL (74-106); Magnesium 1.8 mg/dL (1.8-2.4); NT PRO-BNP 18 pg/mL (<125); Potassium 2.7 mmol/L (3.5-5.1); Protein, Total 8.1 g/dL (6.4-8.2); Sodium Level 136 mmol/L (136-145); Troponin (Emerg Dept Use Only) < 0.02 ng/mL (0.0-0.045)
[2021-03-09 04:42] LABS: Absolute Lymphocytes (CBC) 1.9 K/uL (0.7-4.9); Basophils % 0.7 % (0-1.3); Lymphocytes % 31.6 % (15.3-44.8); MPV 10.6 fL (7.6-11.3); RBC Red Blood Cell Count 5.41 M/uL (3.86-4.86)
[2021-03-09] MEDS ORDERED: KCL 20 MEQ/100 mL IVPB 20 MEQ/100 ML BAG IV ONE (05:03)
[2021-03-09] MEDS ORDERED: POTASSIUM 25 MEQ EFFERV TAB ONE (05:03)
--- NOTE | 2021-03-09 05:59 | ER ---
Nurse's Notes [facility] Name: Alanna Pathak Age: 30 yrs Sex: Female : 1990 Arrival Date: 03/09/2021 Time: 03:03 Bed 14 Private MD: Diagnosis: Hypokalemia;Nausea with vomiting, unspecified;Diarrhea, unspecified;Other viral enteritis;Dehydration Presentation: 03/09 03:12 Chief complaint: Patient states: she has been having vomiting and diarrhea x 3 days bb then this afternoon she started having palpitations which are getting more frequent and scaring her a lot. Coronavirus screen: diarrhea, vomiting. Client presents with at least one sign or symptom that may indicate coronavirus-19. Standard/surgical mask placed on the client. Ebola Screen: No symptoms or risks identified at this time. Initial Sepsis Screen: Does the patient meet any 2 criteria? No. Patient's initial sepsis screen is negative. Does the patient have a suspected source of infection? No. Patient's initial sepsis screen is negative. Risk Assessment: Do you want to hurt yourself or someone else? Patient reports no desire to harm self or others. Onset of symptoms was March 08, 2021. 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 - Social history:: Smoking status: Patient denies any tobacco usage or history of. Patient/guardian denies using alcohol. Screenin:20 Abuse screen: Denies threats or abuse. Nutritional screening: No deficits noted. bb Tuberculosis screening: No symptoms or risk factors identified. Fall Risk None identified. Assessment: 03:20 General: Appears in no apparent distress. uncomfortable, Behavior is calm, cooperative. bb Pain: Denies pain. Neuro: Level of Consciousness is awake, alert, obeys commands, Oriented to person, place, time, situation. Cardiovascular: Capillary refill < 3 seconds Patient's skin is warm and dry. Rhythm is sinus tachycardia. Respiratory: Airway is patent Respiratory effort is even, unlabored, Respiratory pattern is regular. GI: Abdomen is round Reports diarrhea, vomiting. Derm: Skin is pink, warm \T\ dry. Musculoskeletal: Circulation, motion, and sensation intact. Vital Signs: 03:12 BP 138 / 79; Pulse 129; Resp 18 S; Temp 99.1(O); Pulse Ox 100% on R/A; Weight 121.56 kg bb (R); Height 5 ft. 8 in. (172.72 cm) (R); Pain 0/10; 03:53 BP 133 / 93; Pulse 98; Resp 18; Pulse Ox 100% on R/A; ak2 04:33 BP 121 / 83; Pulse 95; Resp 16; Pulse Ox 100% on R/A; ak2 05:39 BP 119 / 81; Pulse 93; Resp 16; Pulse Ox 100% on R/A; ak2 03:12 Body Mass Index 40.75 (121.56 kg, 172.72 cm) bb ED Course: 03:03 Patient arrived in ED. es 03:05 Jamil Velazquez MD is Attending Physician. tw4 03:15 Triage completed. bb 03:17 Arm band placed on Patient placed in an exam room, on a stretcher, on pulse oximetry. bb Family accompanied patient. 03:20 Patient has correct armband on for positive identification. Placed in gown. Bed in low bb position. Call light in reach. Side rails up X 1. Adult w/ patient. 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 Pulse ox on. NIBP on. Warm blanket given. 03:20 No provider procedures requiring assistance completed. Inserted saline lock: 20 gauge bb in right antecubital area, using aseptic technique. ,using aseptic technique. by Seb OZUNA Blood collected. 04:37 Notified ED physician of a critical lab result(s). potassium of 2.7 Dr Velazquez notified. bb 05:39 Obi Gonzalez is Primary Nurse. ak2 Administered Medications: 03:37 Drug: NS 0.9% 1000 ml Route: IV; Rate: 1000 ml; Site: right antecubital; bb 04:50 Drug: Potassium Chloride 20 mEq Route: IV; Rate: calculated rate; Site: right ak2 antecubital; 04:50 Drug: Potassium Effervescent Tablet 50 mEq Route: PO; ak2 Outcome: 05:59 Discharge ordered by . trino 06:11 Discharged to home ambulatory. ak2 06:11 Condition: good 06:11 Discharge instructions given to patient. 06:11 Patient left the ED. ak2 Signatures: Samira Lerma Brenda, RN RN Jamil Painting MD MD tw4 Obi Gonzalez ak2
--- NOTE | 2021-03-09 06:00 | EDPHYS ---
Physician Documentation [facility] Name: Alanna Pathak Age: 30 yrs Sex: Female : 1990 Arrival Date: 03/09/2021 Time: 03:03 Bed 14 Private MD: ED Physician Jamil Velazquez HPI: 03/09 03:51 This 30 yrs old Female presents to ER via Ambulatory with complaints of tw4 Palpitations. 03:51 The patient presents with a history of heart racing. Context: The symptoms occur at tw4 rest. Onset: The symptoms/episode began/occurred today. Duration: The patient or guardian reports a single episode. Modifying factors: The symptoms are aggravated by nothing. The symptoms are alleviated by nothing. Severity of symptoms: At their worst the symptoms were moderate in the emergency department the symptoms are unchanged. The patient has not experienced similar symptoms in the past. 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 - Social history:: Smoking status: Patient denies any tobacco usage or history of. Patient/guardian denies using alcohol. ROS: 03:51 Constitutional: Negative for fever, chills, and weight loss, Eyes: Negative for injury, tw4 pain, redness, and discharge, ENT: Negative for injury, pain, and discharge, Respiratory: Negative for shortness of breath, cough, wheezing, and pleuritic chest pain, Abdomen/GI: Negative for abdominal pain, nausea, vomiting, diarrhea, and constipation, Back: Negative for injury and pain, MS/Extremity: Negative for injury and deformity, Skin: Negative for injury, rash, and discoloration, Neuro: Negative for headache, weakness, numbness, tingling, and seizure. 03:51 Cardiovascular: Positive for palpitations, Negative for chest pain, edema, orthopnea. Exam: 03:51 Constitutional: This is a well developed, well nourished patient who is awake, alert, tw4 and in no acute distress. Head/Face: Normocephalic, atraumatic. Chest/axilla: Normal chest wall appearance and motion. Nontender with no deformity. No lesions are appreciated. 03:51 Respiratory: Lungs have equal breath sounds bilaterally, clear to auscultation and percussion. No rales, rhonchi or wheezes noted. No increased work of breathing, no retractions or nasal flaring. Abdomen/GI: Soft, non-tender, with normal bowel sounds. No distension or tympany. No guarding or rebound. No evidence of tenderness throughout. Back: No spinal tenderness. No costovertebral tenderness. Full range of motion. Skin: Warm, dry with normal turgor. Normal color with no rashes, no lesions, and no evidence of cellulitis. MS/ Extremity: Pulses equal, no cyanosis. Neurovascular intact. Full, normal range of motion. Neuro: Awake and alert, GCS 15, oriented to person, place, time, and situation. Cranial nerves II-XII grossly intact. Motor strength 5/5 in all extremities. Sensory grossly intact. Cerebellar exam normal. Normal gait. 03:51 Cardiovascular: Rate: tachycardic, Rhythm: regular. Vital Signs: 03:12 BP 138 / 79; Pulse 129; Resp 18 S; Temp 99.1(O); Pulse Ox 100% on R/A; Weight 121.56 kg bb (R); Height 5 ft. 8 in. (172.72 cm) (R); Pain 0/10; 03:53 BP 133 / 93; Pulse 98; Resp 18; Pulse Ox 100% on R/A; ak2 04:33 BP 121 / 83; Pulse 95; Resp 16; Pulse Ox 100% on R/A; ak2 05:39 BP 119 / 81; Pulse 93; Resp 16; Pulse Ox 100% on R/A; ak2 03:12 Body Mass Index 40.75 (121.56 kg, 172.72 cm) bb MDM: 03:21 Patient medically screened. tw4 05:56 Differential diagnosis: dehydration, stress disorder. Data reviewed: vital signs, tw4 nurses notes. Data interpreted: Pulse oximetry: Interpretation: normal. Counseling: I had a detailed discussion with the patient and/or guardian regarding: the historical points, exam findings, and any diagnostic results supporting the discharge/admit diagnosis. Medication response: Special discussion: I discussed with the patient/guardian in detail that at this point there is no indication for admission to the hospital. It is understood, however, that if the symptoms persist or worsen the patient needs to return immediately for re-evaluation. 03/09 03:05 Order name: Basic Metabolic Panel tw4 03/09 03:05 Order name: CBC with Diff tw4 03/09 03:05 Order name: LFT's tw4 03/09 03:05 Order name: Magnesium; Complete Time: 04:40 tw4 03/09 04:41 Interpretation: Within normal limits: MG 1.8. tw4 03/09 03:05 Order name: NT PRO-BNP; Complete Time: 04:40 tw4 03/09 04:41 Interpretation: Within normal limits: NT PRO-BNP 18. tw4 03/09 03:05 Order name: PT-INR; Complete Time: 04:40 tw4 03/09 03:05 Order name: Troponin (emerg Dept Use Only); Complete Time: 04:40 tw4 03/09 04:41 Interpretation: Within normal limits: TROPED < 0.02. tw03/09 03:05 Order name: EKG; Complete Time: 03:06 4 03/09 03:05 Order name: Basic Metabolic Panel; Complete Time: 04:40 EDMS 03/09 04:41 Interpretation: K 2.7; GLUC 116; GFR 87. tw4 03/09 03:05 Order name: CBC with Automated Diff EDMS 03/09 03:05 Order name: Liver (Hepatic) Function; Complete Time: 04:40 EDMS 03/09 04:41 Interpretation: Normal except: GLOB 4.4; A/G 0.8. tw03/09 03:05 Order name: Cardiac monitoring; Complete Time: 03:36 03/09 03:05 Order name: EKG - Nurse/Tech; Complete Time: 03:36 03/09 03:05 Order name: IV Saline Lock; Complete Time: 03:36 03/09 03:05 Order name: Labs collected and sent; Complete Time: 03:36 4 03/09 03:05 Order name: O2 Per Protocol; Complete Time: 03:36 4 03/09 03:05 Order name: O2 Sat Monitoring; Complete Time: 03:36 tw4 EC:51 Rate is 113 beats/min. Rhythm is regular. QRS [place] is Normal. SC interval is shortened. tw4 QRS interval is normal. QT interval is normal. No Q waves. T waves are Normal. No ST changes noted. Clinical impression: Sinus tachycardia. Interpreted by me. Reviewed by me. Administered Medications: 03:37 Drug: NS 0.9% 1000 ml Route: IV; Rate: 1000 ml; Site: right antecubital; bb 04:50 Drug: Potassium Chloride 20 mEq Route: IV; Rate: calculated rate; Site: right ak2 antecubital; 04:50 Drug: Potassium Effervescent Tablet 50 mEq Route: PO; ak2 Disposition: 03/09/21 05:59 Discharged to Home. Impression: Hypokalemia, Nausea with vomiting, unspecified, Diarrhea, unspecified, Other viral enteritis, Dehydration. - Condition is Stable. - Discharge Instructions: Food Choices to Help Relieve Diarrhea, Adult, Diarrhea, Adult, Potassium Content of Foods, Nausea and Vomiting, Adult, Viral Gastroenteritis, Adult, [id number], Hypokalemia, Viral Gastroenteritis, Child. - Prescriptions for Bentyl 20 mg Oral Tablet - take 1 tablet by ORAL route every 6 hours As needed; 20 tablet. Zofran 4 mg Oral Tablet - take 1 tablet by ORAL route every 12 hours As needed; 6 tablet. Lomotil 2.5- 0.025 mg Oral Tablet - take 2 tablet by ORAL route once daily As needed; 20 tablet. - Medication Reconciliation Form, Thank You Letter, Antibiotic Education, Prescription Opioid Use form. - Follow up: Private Physician; When: Upon discharge from the Emergency Department; Reason: Recheck today's complaints, Continuance of care, Re-evaluation by your physician. - Problem is new. - Symptoms have improved. Signatures: Dispatcher [employer] EDMary Anne Rodriguez RN RN Jamil Painting MD MD tw4 Obi Gonzalez2 Corrections: (The following items were deleted from the chart) 06:11 05:59 03/09/2021 05:59 Discharged to Home. Impression: Hypokalemia; Nausea with ak2 vomiting, unspecified; Diarrhea, unspecified; Other viral enteritis; Dehydration. Condition is Stable. Forms are Medication Reconciliation Form, Thank You Letter, Antibiotic Education, Prescription Opioid Use. Follow up: Private Physician; When: Upon discharge from the Emergency Department; Reason: Recheck today's complaints, Continuance of care, Re-evaluation by your physician. Problem is new. Symptoms have improved. tw4
[2021-03-09 06:20] VITALS: TEMP 99.1; O2SAT 100
[2021-03-09 06:24] VITALS: BP 119/81
== END 2021-03-09 06:11 | disposition home or self-care (01) ==
LOC: ER 02:58
DX: A08.4 Viral intestinal infection, unspecified (principal); E87.6 Hypokalemia; E86.0 Dehydration
CPT/HCPCS: 93005; 85025; 80048; 36415; 83735; 85610; 80076; 84484; 83880; 96374; 99284; J3480; J7030 ×2